=== PATIENT | female | born 1965 | race Caucasian/White ===

== ENCOUNTER 2017-01-29 10:24 | Outpatient (CLI) | payer MEDICARE, OTHER ==
[2017-01-29 11:13] LABS: ALBUMIN 3.7 g/dL (3.4-5.0); BILIRUBIN,TOTAL 0.5 mg/dL (0.2-1.0); CALCIUM, SERUM 8.6 mg/dL (8.5-10.1); CREATININE 0.7 mg/dL (0.6-1.3); POTASSIUM 4.4 mmol/L (3.5-5.1); TOTAL PROTEIN, SERUM 7.2 g/dL (6.4-8.2)
[2017-01-29] MEDS ORDERED: IOHEXOL-350 100 ML VIAL IV ONE (11:15)
[2017-01-29] MEDS ORDERED: IV NS 0.9% 250 ML IV ONE (11:15)
[2017-01-29] MEDS ORDERED: CT SWABBABLE VALVE TRANS SET 1 EA INFUS.SET MC ONE (11:15)
[2017-01-29] MEDS ORDERED: METOPROLOL TARTRATE INJ 5 MG/5 ML AMPUL ONE (11:19)
[2017-01-29 11:21] LABS: THYROID STIMULATING HORMONE 1.052 uIU/mL (0.358-3.74)
[2017-01-29] MEDS ORDERED: NITROGLYCERIN 4.9 GM SPRAY ONE (12:13)
[2017-01-29 12:36] VITALS: BP 143/83
== END 2017-01-29 23:59 | disposition home or self-care (01) ==
LOC: CT 10:24
PROVIDERS: ATTEND Internal Medicine Interventional Cardiology
DX: I25.10 Atherosclerotic heart disease of native coronary artery without angina pectoris (principal); I10 Essential (primary) hypertension; R07.9 Chest pain, unspecified; R53.83 Other fatigue; R53.81 Other malaise; J47.9 Bronchiectasis, uncomplicated; R59.1 Generalized enlarged lymph nodes
CPT/HCPCS: 36415; 75574; 80053; 80061; 82306; 84439; 84443; 93005; J3490; J7050; Q9967